=== PATIENT | female | born 1950 | race Caucasian/White ===

== ENCOUNTER 2018-05-29 17:28 | Emergency (ER) | payer MEDICARE, MEDICAID ==
[~2018-05-29] VITALS: Ht 165.1 cm; Wt 48.8 kg
[2018-05-29 18:16] LABS: BASOPHILS % (AUTO) 0.3 % (0-1); EOSINOPHILS # (AUTO) 0.2 X10'3 (0-0.9); EOSINOPHILS % (AUTO) 1.9 % (0-6); HEMATOCRIT 22.6 % (35.0-45.0); HEMOGLOBIN 7.3 g/dl (12.0-16.0); LYMPHOCYTES # (AUTO) 1.4 X10'3 (1.1-4.8); LYMPHOCYTES % (AUTO) 17.7 % (21-51); MEAN CORPUSCULAR HEMOGLOBIN 30.9 PG (27.0-31.0); MEAN CORPUSCULAR HGB CONC 32.1 % (33.0-36.5); MEAN CORPUSCULAR VOLUME 96.3 FL (78-98); MEAN PLATELET VOLUME 7.8 FL (7.4-10.4); MONOCYTES # (AUTO) 0.8 X10'3 (0-0.9); MONOCYTES % (AUTO) 10.4 % (2-12); NEUTROPHILS # (AUTO) 5.5 X10'3 (1.8-7.7); NEUTROPHILS % (AUTO) 69.7 % (42-75); PLATELET COUNT 310 X10'3 (140-440); RED BLOOD COUNT 2.35 X10'6 (4.20-5.60); RED CELL DISTRIBUTION WIDTH 14.4 % (11.5-14.5); WHITE BLOOD COUNT 7.9 X10'3 (4.5-11.0)
[2018-05-29 18:38] LABS: ALANINE AMINOTRANSFERASE 31 U/L (12-78); ALBUMIN/GLOBULIN RATIO 0.4 (1.1-1.5); ALKALINE PHOSPHATASE 198 IU/L (46-116); ANION GAP 13 (8-16); ASPARTATE AMINO TRANSFERASE 71 U/L (10-37); BILIRUBIN,TOTAL 0.5 MG/DL (0.1-1.0); BLOOD UREA NITROGEN 15 MG/DL (7-18); BUN/CREATININE RATIO 12.9 (6.6-38.0); CALCIUM 8.2 MG/DL (8.5-10.1); CHLORIDE 103 MMOL/L (99-107); CREATININE 1.16 MG/DL (0.40-0.90); GLUCOSE 107 MG/DL (70-104); POTASSIUM 3.1 MMOL/L (3.5-5.1); SODIUM 138 MMOL/L (135-145); TOTAL CARBON DIOXIDE 21.9 MMOL/L (24-32); TOTAL PROTEIN 7.3 G/DL (6.4-8.2); eGFR 46 ML/MIN
[2018-05-29 18:41] LABS: PROTHROMBIN TIME 10.5 SECONDS (9.0-12.0)
[2018-05-29] MEDS ORDERED: SPIR25TA PO (20:08)
[2018-05-29 20:19] VITALS: BP 145/93
== END 2018-05-29 20:20 | disposition home or self-care (01) ==
LOC: ER 17:28
DX: K70.31 Alcoholic cirrhosis of liver with ascites (principal); E87.6 Hypokalemia; Z88.2 Allergy status to sulfonamides
CPT/HCPCS: 36415; 80053; 85025; 85610; 99283

== ENCOUNTER 2018-06-10 07:32 | Day surgery (SDC) | payer MEDICARE, MEDICAID ==
[~2018-06-10] VITALS: Ht 165.1 cm; Wt 48.6 kg
[2018-06-10] VITALS (7 sets, daily range): BP systolic 119–139; BP diastolic 65–79
[~2018-06-10 07:32] MED LIST: LIDOcaine 1% 30ml preserv. free vial SQ STA; SPIR25TA PO
[2018-06-10] MEDS ORDERED: normal saline 1000ml 1,000 ML IV PRN (07:50)
[2018-06-10] MEDS ORDERED: albumin 25% 50mL bottle X 2 BOTTLES IV ONE (07:50)
[2018-06-10] MEDS ORDERED: SPIR25TA5 PO (07:52)
[2018-06-10] MEDS ORDERED: AMLO2.5T2 PO (07:52)
[2018-06-10] MEDS ORDERED: CYA500T PO (07:52)
[2018-06-10] MEDS ORDERED: CHOL400T32 PO (07:52)
[2018-06-10] MEDS ORDERED: IRON18TA PO (07:52)
== END 2018-06-10 09:22 | disposition home or self-care (01) ==
LOC: SSTAY O 07:32
PROVIDERS: ATTEND Radiology Diagnostic Radiology
DX: R18.8 Other ascites (principal); Z79.899 Other long term (current) drug therapy; Z98.890 Other specified postprocedural states
CPT/HCPCS: 49083; J3490; J7030

== ENCOUNTER 2018-06-18 07:31 | Day surgery (SDC) | payer MEDICARE, MEDICAID ==
[~2018-06-18] VITALS: Ht 165.1 cm; Wt 46.0 kg
[~2018-06-18 07:31] MED LIST changes: +AMLO2.5T2 PO; +CHOL400T32 PO; +CYA500T PO; +IRON18TA PO; +LIDOcaine 1% 30ml preserv. free vial SQ ONE; -LIDOcaine 1% 30ml preserv. free vial SQ STA; -SPIR25TA PO; +SPIR25TA5 PO
[2018-06-18 07:43] VITALS: BP 127/77
[2018-06-18] MEDS ORDERED: normal saline 1000ml 1,000 ML IV PRN (07:50)
[2018-06-18] MEDS ORDERED: albumin 25% 50mL bottle X 2 BOTTLES IV PRN (07:50)
[2018-06-18] MEDS ORDERED: albumin 25% 50mL bottle X 2 BOTTLES IV ONE (07:50)
[2018-06-18] MEDS ORDERED: MULT-1180 PO (07:58)
[2018-06-18 08:43] VITALS: BP 134/77
[2018-06-18 09:00] VITALS: BP 117/67
[2018-06-18 09:15] VITALS: BP 109/62
[2018-06-18 09:30] VITALS: BP 115/74
[2018-06-18 09:35] VITALS: BP 115/74
== END 2018-06-18 09:45 | disposition home or self-care (01) ==
LOC: SSTAY O 07:31
PROVIDERS: ATTEND Radiology Diagnostic Radiology
DX: K70.31 Alcoholic cirrhosis of liver with ascites (principal); F10.21 Alcohol dependence, in remission; Z98.51 Tubal ligation status; Z87.891 Personal history of nicotine dependence; Z90.49 Acquired absence of other specified parts of digestive tract; Z87.39 Personal history of other diseases of the musculoskeletal system and connective tissue; Z88.2 Allergy status to sulfonamides; Z79.891 Long term (current) use of opiate analgesic; Z79.899 Other long term (current) drug therapy; Z98.890 Other specified postprocedural states
CPT/HCPCS: 49083; J3490; J7030

== ENCOUNTER 2018-07-02 07:10 | Day surgery (SDC) | payer MEDICARE, MEDICAID ==
[~2018-07-02] VITALS: Ht 165.1 cm; Wt 45.2 kg
[~2018-07-02 07:10] MED LIST changes: -LIDOcaine 1% 30ml preserv. free vial SQ ONE; +MULT-1180 PO
[2018-07-02 07:28] VITALS: BP 121/78
[2018-07-02] MEDS ORDERED: albumin 25% 50mL bottle X 2 BOTTLES IV ONE (07:40)
[2018-07-02] MEDS ORDERED: LIDOcaine 1% 30ml preserv. free vial SQ ONE (08:00)
[2018-07-02 09:30] VITALS: BP 110/59
[2018-07-02 09:45] VITALS: BP 112/62
[2018-07-02 09:50] VITALS: BP 106/63
== END 2018-07-02 09:58 | disposition home or self-care (01) ==
LOC: SSTAY O 07:10
PROVIDERS: ATTEND Radiology Diagnostic Radiology
DX: K70.31 Alcoholic cirrhosis of liver with ascites (principal); I10 Essential (primary) hypertension; Z88.2 Allergy status to sulfonamides; Z90.49 Acquired absence of other specified parts of digestive tract; Z98.49 Cataract extraction status, unspecified eye; Z79.899 Other long term (current) drug therapy
CPT/HCPCS: 49083; J3490; C1729

== ENCOUNTER 2018-07-09 07:56 | Day surgery (SDC) | payer MEDICARE, MEDICAID ==
[~2018-07-09] VITALS: Ht 165.1 cm; Wt 45.7 kg
[2018-07-09] MEDS ORDERED: normal saline 1000ml 1,000 ML IV PRN (08:15)
[2018-07-09 08:22] VITALS: BP 127/78
[2018-07-09 09:12] VITALS: BP 119/78
[2018-07-09 09:15] VITALS: BP 120/67
[2018-07-09 09:30] VITALS: BP 110/50
[2018-07-09] MEDS ORDERED: LIDOcaine 1% 30ml preserv. free vial SQ ONE (09:30)
== END 2018-07-09 10:25 | disposition home or self-care (01) ==
LOC: SSTAY O 07:56
PROVIDERS: ATTEND Radiology Diagnostic Radiology
DX: K70.31 Alcoholic cirrhosis of liver with ascites (principal); I10 Essential (primary) hypertension; Z90.49 Acquired absence of other specified parts of digestive tract; Z88.2 Allergy status to sulfonamides; Z98.49 Cataract extraction status, unspecified eye; Z79.899 Other long term (current) drug therapy
CPT/HCPCS: 49083; C1729; J3490; J7030

== ENCOUNTER 2018-07-17 07:10 | Day surgery (SDC) | payer MEDICARE, MEDICAID ==
[~2018-07-17] VITALS: Ht 165.1 cm; Wt 45.7 kg
[2018-07-17 07:35] VITALS: BP 127/76
[2018-07-17] MEDS ORDERED: normal saline 1000ml 1,000 ML IV PRN (07:50)
[2018-07-17] MEDS ORDERED: albumin 25% 50mL bottle X 2 BOTTLES IV ONE (07:50)
[2018-07-17] MEDS ORDERED: LIDOcaine 1% 30ml preserv. free vial SQ ONE (08:00)
--- NOTE | 2018-07-17 09:25 | NUR ---
procedure cancelled per Ben Blancas NP.
== END 2018-07-17 09:25 | disposition home or self-care (01) ==
LOC: SSTAY O 07:10
PROVIDERS: ATTEND Radiology Vascular & Interventional Radiology
DX: R18.8 Other ascites (principal)
CPT/HCPCS: 76705; J3490; J7030

== ENCOUNTER 2018-07-23 07:22 | Day surgery (SDC) | payer MEDICARE, MEDICAID ==
[~2018-07-23] VITALS: Ht 165.1 cm; Wt 46.8 kg
[~2018-07-23 07:22] MED LIST changes: +LIDOcaine 1% 30ml preserv. free vial SQ STA
[2018-07-23 07:32] VITALS: BP 127/97
[2018-07-23] MEDS ORDERED: albumin (human) 25% 100 ML IV solution IV PRN (07:45)
[2018-07-23] MEDS ORDERED: normal saline 1000ml 1,000 ML IV PRN (07:45)
[2018-07-23] MEDS ORDERED: albumin 25% 50mL bottle X 2 BOTTLES IV PRN (07:45)
[2018-07-23 08:40] VITALS: BP 112/69
[2018-07-23 08:55] VITALS: BP 127/74
[2018-07-23 09:10] VITALS: BP 112/68
[2018-07-23 09:15] VITALS: BP 113/68
[2018-07-23 09:30] VITALS: BP 119/89
== END 2018-07-23 09:55 | disposition home or self-care (01) ==
LOC: SSTAY O 07:22
PROVIDERS: ATTEND Radiology Vascular & Interventional Radiology
DX: K70.9 Alcoholic liver disease, unspecified (principal); R18.8 Other ascites; I10 Essential (primary) hypertension; Z88.2 Allergy status to sulfonamides; Z90.49 Acquired absence of other specified parts of digestive tract; Z98.42 Cataract extraction status, left eye; Z98.41 Cataract extraction status, right eye; Z96.1 Presence of intraocular lens; Z79.899 Other long term (current) drug therapy
CPT/HCPCS: 49083; C1729; J3490; J7030; P9047

== ENCOUNTER 2018-07-29 07:31 | Day surgery (SDC) | payer MEDICARE, MEDICAID ==
[~2018-07-29] VITALS: Ht 165.1 cm; Wt 46.4 kg
[~2018-07-29 07:31] MED LIST changes: -LIDOcaine 1% 30ml preserv. free vial SQ STA
[2018-07-29 07:45] VITALS: BP 129/59
[2018-07-29] MEDS ORDERED: albumin (human) 25% 100 ML IV solution IV PRN (07:50)
[2018-07-29] MEDS ORDERED: normal saline 1000ml 1,000 ML IV PRN (07:50)
--- NOTE | 2018-07-29 08:20 | NUR ---
procedure cancelled per Ben Blancas NP
[2018-07-29] MEDS ORDERED: LIDOcaine 1% 30ml preserv. free vial SQ ONE (08:30)
== END 2018-07-29 08:30 | disposition home or self-care (01) ==
LOC: SSTAY O 07:31
PROVIDERS: ATTEND Radiology Vascular & Interventional Radiology
DX: K70.31 Alcoholic cirrhosis of liver with ascites (principal); I10 Essential (primary) hypertension; Z90.49 Acquired absence of other specified parts of digestive tract; Z98.49 Cataract extraction status, unspecified eye; Z79.899 Other long term (current) drug therapy; Z88.1 Allergy status to other antibiotic agents
CPT/HCPCS: 76705; J3490; J7030

== ENCOUNTER 2018-08-19 06:59 | Day surgery (SDC) | payer MEDICARE, MEDICAID ==
[~2018-08-19] VITALS: Ht 165.1 cm; Wt 46.8 kg
[~2018-08-19 06:59] MED LIST changes: +LIDOcaine 1% 30ml preserv. free vial SQ STA
[2018-08-19] MEDS ORDERED: albumin (human) 25% 100 ML IV solution IV PRN (07:15)
[2018-08-19] MEDS ORDERED: normal saline 1000ml 1,000 ML IV PRN (07:15)
[2018-08-19 07:16] VITALS: BP 135/79
== END 2018-08-19 08:30 | disposition home or self-care (01) ==
LOC: SSTAY O 06:59
PROVIDERS: ATTEND Radiology Diagnostic Radiology
DX: K70.31 Alcoholic cirrhosis of liver with ascites (principal); Z53.8 Procedure and treatment not carried out for other reasons; I10 Essential (primary) hypertension; Z90.49 Acquired absence of other specified parts of digestive tract; Z98.49 Cataract extraction status, unspecified eye; Z79.899 Other long term (current) drug therapy
CPT/HCPCS: 76705; J3490; J7030

== ENCOUNTER 2018-09-23 06:28 | Day surgery (SDC) | payer MEDICARE, MEDICAID ==
[~2018-09-23] VITALS: Ht 165.1 cm; Wt 48.4 kg
[2018-09-23] MEDS ORDERED: albumin 25% 100mL bottle x 1 IV PRN (06:40)
[2018-09-23] MEDS ORDERED: normal saline 1000ml 1,000 ML IV PRN (06:40)
[2018-09-23 06:47] VITALS: BP 109/76
[2018-09-23] MEDS ORDERED: TRAM50TA2 PO (07:09)
--- NOTE | 2018-09-23 08:35 | NUR ---
PT PROCEDURE CANCELLED BY NATALIYA KITCHEN NP. U/S DONE. NO FLUID PER [employer].
== END 2018-09-23 09:05 | disposition home or self-care (01) ==
LOC: SSTAY O 06:28
PROVIDERS: ATTEND Radiology Vascular & Interventional Radiology
DX: R18.8 Other ascites (principal); Z53.8 Procedure and treatment not carried out for other reasons
CPT/HCPCS: 76705; J3490; J7030